=== PATIENT | female | born 1995 | race Caucasian/White ===

== ENCOUNTER 2018-01-09 17:01 | Emergency (ER) | payer OTHER ==
[~2018-01-09] VITALS: Ht 167.6 cm; Wt 68.0 kg
[2018-01-09] MEDS ORDERED: ATIVAN1 MG PO (19:34)
== END 2018-01-09 19:40 | disposition home or self-care (01) ==
LOC: ED 17:01
DX: F15.180 Other stimulant abuse with stimulant-induced anxiety disorder (principal); F17.200 Nicotine dependence, unspecified, uncomplicated
CPT/HCPCS: 80053; 80176; 81001; 84703; 85025; 99284; G0480

== ENCOUNTER 2018-02-10 17:51 | Emergency (ER) | payer OTHER ==
[~2018-02-10] VITALS: Ht 167.6 cm; Wt 68.0 kg
[~2018-02-10 17:51] MED LIST: ATIVAN1 MG PO
== END 2018-02-11 01:13 | disposition home or self-care (01) ==
LOC: ED 17:51
PROC: 0T9B70Z Drainage of Bladder with Drainage Device, Via Natural or Artificial Opening (ICD-10-PCS; principal; 2018-02-10)
DX: F10.129 Alcohol abuse with intoxication, unspecified (principal); Y90.8 Blood alcohol level of 240 mg/100 ml or more
CPT/HCPCS: 36415; 51701; 80053; 80176; 81001; 84443; 84703; 85025; 96372; 99285; G0480; J1200; J1630; J2060

== ENCOUNTER 2023-06-10 14:00 | Emergency (ER) | payer OTHER ==
[~2023-06-10] VITALS: Ht 167.6 cm; Wt 74.9 kg
[~2023-06-10 14:00] MED LIST changes: +HYDROCODON-ACE1 EA11 PO
[2023-06-10 14:44] LABS: BASOPHILS 0.6 % (0-2); EOSINOPHILS 4.1 % (0-6); HEMATOCRIT 37.7 % (35.0-50.0); HEMOGLOBIN 12.4 g/dL (12.0-18.0); LYMPHOCYTES 33.7 % (24-44); MCH 28.9 (27-36); MCV 87.8 fl (81-99); MONOCYTES 8.4 % (0-12); NEUTROPHILS 53.2 % (39-80); PLATELET COUNT 452 K/uL (140-440); RBC 4.29 M/ul (4.3-5.7); RDW 14.8 (10.5-15.0)
--- NOTE | 2023-06-10 17:40 | EKG ---
[facility] [address] [facility] [place], [place] [address] Signed Normal sinus rhythm Normal ECG No previous ECGs available Confirmed by ZOHRA CROSS MD ([id number]) on 06/10/2023 5:40:07 PM Electronically Signed By: ZOHRA CROSS 06/10/23 1740 PATIENT NAME: NEGRO BECKHAM Electrocardiogram DATE OF : [birth year] PHYSICIAN: ZOHRA CROSS REPORT #: [id number] REPORT IS CONFIDENTIAL AND NOT TO BE RELEASED WITHOUT AUTHORIZATION
[2023-06-10] MEDS ORDERED: HYDROCODON-ACE1 EA11 PO (18:09)
[2023-06-10 18:29] VITALS: BP 109/71
== END 2023-06-10 18:30 | disposition home or self-care (01) ==
LOC: ED 14:00
PROVIDERS: Emergency Medicine
DX: S22.32XA Fracture of one rib, left side, initial encounter for closed fracture (principal); W19.XXXA Unspecified fall, initial encounter; Z88.8 Allergy status to other drugs, medicaments and biological substances
CPT/HCPCS: 36415; 71046; 84703; 85025; 93005; 93010; 96374; 96375; 99284-25; A9270; J1170; J1885

== ENCOUNTER 2023-10-17 07:12 | Emergency (ER) | payer OTHER ==
[~2023-10-17] VITALS: Ht 167.6 cm; Wt 180.0 kg
[2023-10-17 08:05] LABS: BILIRUBIN, URINE NEGATIVE (negative); BLOOD/HGB, URINE SMALL (Negative); KETONE, URINE NEGATIVE (Negative); LEUK ESTERASE, URINE NEGATIVE (negative); NITRITE, URINE NEGATIVE (negative)
[2023-10-17 08:10] LABS: EPITHELIAL CELLS, URINE SQUAMOUS 1+ /lpf (0-1+)
[2023-10-17 08:11] LABS: RED BLOOD CELLS, URINE 0-1 /hpf (0-5)
[2023-10-17 08:12] LABS: BACTERIA, URINE RARE /hpf (negative); REFLEX CULTURE, URINE No (No); WHITE BLOOD CELLS, URINE 0-1 /HPF (0-5)
[2023-10-17 08:13] LABS: HEMATOCRIT 39.8 % (35.0-50.0); MCH 28.8 (27-36); MCHC 32.6 g/dl (30-36); MCV 88.4 fl (81-99); PLATELET COUNT 417 K/uL (140-440); RBC 4.51 M/ul (4.3-5.7)
[2023-10-17 08:27] LABS: ALBUMIN 3.7 g/dL (3.4-5.0); ALBUMIN/GLOBULIN RATIO 0.86 (1.1-2.4); ANION GAP 19.5 (7-21); BILIRUBIN, TOTAL 0.4 ng/dL (0.2-1.0); BUN/CREATININE RATIO 6.17 (6.0-28.6); CALCIUM 8.2 mg/dL (8.5-10.1); CREATININE, SERUM 0.81 mg/dL (0.55-1.02); POTASSIUM 3.5 mmol/L (3.5-5.1)
[2023-10-17 08:35] LABS: LYMPHOCYTES, MANUAL DIFF 3; MONOCYTES, MANUAL DIFF 7; NEUTROPHILS, MANUAL DIFF 90
[2023-10-17 11:27] VITALS: BP 115/79
== END 2023-10-17 11:28 | disposition home or self-care (01) ==
LOC: ED 07:12
PROVIDERS: Emergency Medicine
DX: S80.811A Abrasion, right lower leg, initial encounter (principal); S80.812A Abrasion, left lower leg, initial encounter; S39.012A Strain of muscle, fascia and tendon of lower back, initial encounter; V48.0XXA Car driver injured in noncollision transport accident in nontraffic accident, initial encounter; Z88.8 Allergy status to other drugs, medicaments and biological substances
CPT/HCPCS: 36415; 70450; 71045; 72170; 73610; 74177; 80053; 81001; 84703; 85025; 99284-25; Q9967

== ENCOUNTER 2024-12-11 10:36 | Inpatient (IN) | payer OTHER ==
[~2024-12-11] VITALS: Ht 167.6 cm; Wt 90.7 kg
[2024-12-11] MEDS ORDERED: LACTATED RINGER'S 1,000 ML IV PRN (10:45)
[2024-12-11] MEDS ORDERED: MAGNESIUM HYDROXIDE/AL HYDROX 30 ML CUP PO PRN (10:45)
[2024-12-11] MEDS ORDERED: OXYTOCIN/0.9 % SODIUM CHLORIDE 30 UNITS/500 ML BAG IV SCH (10:45)
[2024-12-11] MEDS ORDERED: CALCIUM CARBONATE 500 MG CHEW PO PRN (10:45)
[2024-12-11] MEDS ORDERED: PENICILLIN G POTASSIUM 5 MUNITS in SODIUM CHLORIDE 0.9% 100 ML IV ONE (10:45)
[2024-12-11 11:15] VITALS: BP 112/78
[2024-12-11 11:34] LABS: HEMATOCRIT 33.5 % (34.1-44.9); HEMOGLOBIN 11.5 g/dL (11.2-15.7); MCH 30.9 PG (25.6-32.2); MCHC 34.3 g/dL (32.2-35.5); MCV 90.1 fL (79.4-94.8); RBC 3.72 M/uL (3.93-5.22)
[2024-12-11 12:00] LABS: AMPHETAMINES, URINE NEGATIVE (NEGATIVE); BARBITURATES, URINE NEGATIVE (NEGATIVE); BENZODIAZEPINE, URINE NEGATIVE (NEGATIVE); BUPRENORPHINE, URINE NEGATIVE (NEGATIVE); CANNABINOID, URINE NEGATIVE (NEGATIVE); COCAINE, URINE NEGATIVE (NEGATIVE); ECSTASY, URINE NEGATIVE (NEGATIVE); FENTANYL, URINE NEGATIVE (NEGATIVE); METHADONE, URINE NEGATIVE (NEGATIVE); OPIATES, URINE NEGATIVE (NEGATIVE); OXYCODONE, URINE NEGATIVE (NEGATIVE); PHENCYCLIDINE, URINE NEGATIVE (NEGATIVE)
[2024-12-11 12:11] LABS: ABO A; ANTIBODY SCREEN NEGATIVE; RH POSITIVE
[2024-12-11] MEDS ORDERED: miSOPROStoL 25 MCG TAB PV SCH (12:15)
[2024-12-11] MEDS ORDERED: PENICILLIN G POTASSIUM 2.5 MUNITS in DEXTROSE 5% 100 ML IV SCH (16:00)
[2024-12-11] MEDS ORDERED: OXYTOCIN/0.9 % SODIUM CHLORIDE 500 ML IV SCH (20:00)
[2024-12-11] MEDS ORDERED: ROPIVACAINE 0.2% 200 ML BAG ONE (22:39)
[2024-12-11] MEDS ORDERED: fentaNYL citrate 100 MCG/2 ML VIAL ONE (22:39)
[2024-12-11] MEDS ORDERED: LACTATED RINGER'S 2,000 ML IV ONE (22:45)
[2024-12-11] MEDS ORDERED: LACTATED RINGER'S 500 ML IV PRN (22:45)
[2024-12-11] MEDS ORDERED: ePHEDrine sulfate 5 MG/ML SYRINGE IV PRN (22:45)
[2024-12-11] MEDS ORDERED: fentaNYL citrate 100 MCG/2 ML VIAL IV ONE (22:45)
[2024-12-11] MEDS ORDERED: ROPIVACAINE 0.2% 200 ML BAG EPIDURAL SCH (22:45)
[2024-12-11] MEDS ORDERED: ePHEDrine KIT FOR FBC IV ONE (23:50)
[2024-12-12] MEDS ORDERED: MAGNESIUM HYDROXIDE 30 ML UDC PO PRN (01:30)
[2024-12-12] MEDS ORDERED: CALCIUM CARBONATE 500 MG CHEW PO PRN (01:30)
[2024-12-12] MEDS ORDERED: BENZOCAINE 60 ML AEROSOL TOP PRN (01:30)
[2024-12-12] MEDS ORDERED: IBUPROFEN 600 MG TAB PO PRN (01:30)
[2024-12-12] MEDS ORDERED: LIDOCAINE 2% VISCOUS 6 ML SYR TOP ONE (01:30)
[2024-12-12] MEDS ORDERED: OXYTOCIN/0.9 % SODIUM CHLORIDE 500 ML IV SCH (01:30)
[2024-12-12] MEDS ORDERED: WITCH HAZEL/GLYCERIN 1 EA PAD TOP PRN (01:30)
[2024-12-12] MEDS ORDERED: ACETAMINOPHEN 325 MG TAB PO PRN (01:30)
[2024-12-12] MEDS ORDERED: HYDROCORTISONE ACETATE 25 MG SUPP PR PRN (01:30)
[2024-12-12] MEDS ORDERED: SENNOSIDES/DOCUSATE 1 EA TAB PO SCH (09:00)
--- NOTE | 2024-12-13 07:01 | PR ---
[facility] [address] [facility] [place], [place] [address] Signed PP Progress Notes Datetime Report Generated by CPJacquelin: 12/13/2024 07:01 SUBJECTIVE: [id number] Pain: Within Normal Limits Nausea/Vomiting: Denies Flatus: Yes Vital Signs: [id number] Vital Signs: Reviewed; Within Normal Limits EXAM: Ongoing Cardiovascular: Normal Respiratory: Normal Abdomen/Uterus: Normal Lochia: Normal Vulva/Perineum: Normal Breasts: Not Done CVA Tenderness: Not Done Extremities: Normal Incision: Not Applicable Progress: Normal IMPRESSION/PLAN/PROCEDURES: [id number] Impression: Normal Progression Plan: Continue Present Management; Discharge Progress Notes: No concerns. Desires D/C home Crisis eval yesterday secondary to partner's report of SI. Patient denies, no concerns after evaluation. Normal lochia. Pain well controlled. Signing Physician: Perla Luna MD Copies: ~ *Electronically Signed* 12/13/24 0701 PERLA LUNA MD PATIENT NAME: CHAPINCITONEGRO MARIE PROGRESS NOTE DATE OF : [birth year] PHYSICIAN: PERLA LUNA MD RPT #: [id number] REPORT IS CONFIDENTIAL AND NOT TO BE RELEASED WITHOUT AUTHORIZATION
== END 2024-12-13 09:27 | disposition home or self-care (01) | DRG 806 ==
LOC: FBC 10:36
PROVIDERS: ADMIT Obstetrics & Gynecology; ATTEND Obstetrics & Gynecology
PROC: 10E0XZZ Delivery of Products of Conception, External Approach (ICD-10-PCS; principal; 2024-12-11)
PROC: 10907ZC Drainage of Amniotic Fluid, Therapeutic from Products of Conception, Via Natural or Artificial Opening (ICD-10-PCS; 2024-12-11)
PROC: 0UQMXZZ Repair Vulva, External Approach (ICD-10-PCS; 2024-12-11)
PROC: 3E0R3BZ Introduction of Anesthetic Agent into Spinal Canal, Percutaneous Approach (ICD-10-PCS; 2024-12-11)
PROC: 00HU33Z Insertion of Infusion Device into Spinal Canal, Percutaneous Approach (ICD-10-PCS; 2024-12-11)
DX: O48.0 Post-term pregnancy (principal); O98.32 Other infections with a predominantly sexual mode of transmission complicating childbirth; Z37.0 Single live birth; O99.824 Streptococcus B carrier state complicating childbirth; Z3A.41 41 weeks gestation of pregnancy; O70.0 First degree perineal laceration during delivery; O99.284 Endocrine, nutritional and metabolic diseases complicating childbirth; E55.9 Vitamin D deficiency, unspecified; Z88.8 Allergy status to other drugs, medicaments and biological substances; A60.00 Herpesviral infection of urogenital system, unspecified; Z79.82 Long term (current) use of aspirin; Z79.899 Other long term (current) drug therapy; O99.334 Smoking (tobacco) complicating childbirth; F17.290 Nicotine dependence, other tobacco product, uncomplicated
CPT/HCPCS: 01960; 36415; 80307; 85027; 86850; 86900; 86901; A9270; J2540; J3010; J7121